=== PATIENT | female | born 1965 | race Two or more races ===

== ENCOUNTER 2018-07-08 10:36 | Outpatient (CLI) | payer OTHER ==
--- NOTE | 2018-07-12 12:54 | Mammography Report ---
Reason: BREAST CA SCREENING Procedure Date: 07/08/2018 Accession Number: [id number] / [id number] Procedure: MGN - Screening Mammo Dig Bilat CPT Code: FULL RESULT: EXAM: Screening Mammo Dig Bilat DATE: 07/08/2018 10:55 AM CLINICAL HISTORY: Routine screening TECHNIQUE: (B) - Bilateral CC and MLO views were obtained. COMPARISON: 04/19/2014 PARENCHYMAL PATTERN: (A) - The breasts demonstrate scattered fibroglandular densities bilaterally. FINDINGS: No significant interval change. There are no suspicious masses, calcifications, or areas of distortion. IMPRESSION: Negative examination. BI-RADS category 1. RECOMMENDATION: (ANNUAL) - Recommend routine annual screening mammography. BI-RADS CATEGORY: (1) - Negative. STANDARD QUALIFYING STATEMENTS: 1. This examination was not reviewed with the aid of Computer-Aided Detection (CAD). 2. A negative or benign imaging report should not preclude biopsy if clinically suspicious findings are present. 3. Dense breasts may obscure an underlying neoplasm. 4. This examination was reviewed without the aid of 3D breast imaging (tomosynthesis).
== END 2018-07-08 10:37 | disposition home or self-care (01) ==
LOC: DI.N 10:36
PROVIDERS: ATTEND Physician Assistant Medical
DX: Z12.31 Encounter for screening mammogram for malignant neoplasm of breast (principal)
CPT/HCPCS: 77067

== ENCOUNTER 2018-08-24 07:04 | Day surgery (SDC) | payer OTHER ==
[2018-08-24] MEDS ORDERED: LACTATED RINGERS 1,000 ML IV ONE ×2 (07:18→09:30)
[2018-08-24 07:43] LABS: HCG UR QUAL NEGATIVE
[2018-08-24] MEDS ORDERED: MIDAZOLAM 2 MG/2 ML VIAL IVP ONE (09:07)
[2018-08-24] MEDS ORDERED: fentaNYL 250 MCG/5 ML VIAL IVP ONE (09:07)
[2018-08-24 10:04] VITALS: BP 101/65
== END 2018-08-24 07:05 | disposition home or self-care (01) ==
LOC: SDS 07:04
PROVIDERS: ATTEND Surgery
PROC: 0DJD8ZZ Inspection of Lower Intestinal Tract, Via Natural or Artificial Opening Endoscopic (ICD-10-PCS; principal; 2018-08-24 08:15)
DX: Z12.11 Encounter for screening for malignant neoplasm of colon (principal); K64.8 Other hemorrhoids
CPT/HCPCS: 45378; 81025; J3010; J7120

== ENCOUNTER 2018-12-08 08:00 | Outpatient (CLI) | payer OTHER ==
[2018-12-08 20:35] LABS: CANDIDA GROUP DNA POSITIVE (NEGATIVE); CANDIDA KRUSEI DNA NEGATIVE (NEGATIVE); TRICHOMONAS VAGINALIS DNA NEGATIVE (NEGATIVE)
[2018-12-08 21:19] LABS: TRICHOMONAS VAGINALIS DNA NEGATIVE (NEGATIVE)
== END 2018-12-08 23:59 | disposition home or self-care (01) ==
LOC: LAB.R 08:00
PROVIDERS: ATTEND Obstetrics & Gynecology
DX: R10.2 Pelvic and perineal pain (principal)
CPT/HCPCS: 87491; 87591; 87661; 87801

== ENCOUNTER 2018-12-14 19:28 | Outpatient (CLI) | payer OTHER ==
--- NOTE | 2018-12-14 21:38 | Ultrasound Report ---
Reason: PELVIC PAIN Procedure Date: 12/14/2018 Accession Number: [id number] / [id number] Procedure: US - Pelvic w/Transvaginal CPT Code: FULL RESULT: EXAM: PELVIC ULTRASOUND EXAM DATE: 12/14/2018 08:20 PM. CLINICAL HISTORY: PELVIC PAIN. COMPARISON: None. TECHNIQUE: Realtime transabdominal pelvic scan performed to identify the uterus and adnexa and as an overview of other pelvic structures, followed by transvaginal scan to provide greater detail of the uterus and adnexa, with static image documentation. FINDINGS: Uterus: 8.2 x 4.0 x 5.4 cm, volume 92.3 cc. Anteverted position. Normal overall size and echotexture. Masses: None. Endometrium: 3 mm. Tiny amount of fluid within the endometrial canal Cervix: Unremarkable. Right Ovary: 1.7 x 1.5 x 2.2 cm, volume 3 cc. Not seen well.. Left Ovary: 2.5 x 1.4 x 2.3 cm, volume 4.1 cc. 1.2 x 1.5 x 1.1 cm simple appearing cyst or follicle. Ovaries are only seen transabdominally. Free Fluid: None. Other: None. IMPRESSION: 1. The ovaries are not well seen, but they appear grossly normal. No adnexal masses. 2. Tiny amount of fluid within the endometrial canal near the fundus, otherwise uterus is normal. RADIA
== END 2018-12-14 19:29 | disposition home or self-care (01) ==
LOC: DI 19:28
PROVIDERS: ATTEND Obstetrics & Gynecology
DX: R10.2 Pelvic and perineal pain (principal)
CPT/HCPCS: 76830; 76856

== ENCOUNTER 2019-10-18 08:00 | Outpatient (CLI) | payer BC, OTHER ==
[2019-10-18 18:44] LABS: CANDIDA GROUP DNA POSITIVE (NEGATIVE); CANDIDA KRUSEI DNA NEGATIVE (NEGATIVE); TRICHOMONAS VAGINALIS DNA NEGATIVE (NEGATIVE)
== END 2019-10-18 23:59 | disposition home or self-care (01) ==
LOC: LAB.R 08:00
PROVIDERS: ATTEND Obstetrics & Gynecology
DX: B37.2 Candidiasis of skin and nail (principal)
CPT/HCPCS: 87661; 87801

== ENCOUNTER 2019-10-27 08:02 | Outpatient (CLI) | payer BC ==
[2019-10-27 12:43] LABS: HEMOGLOBIN A1c% 5.2 % (4.27-6.07)
== END 2019-10-27 08:03 | disposition home or self-care (01) ==
LOC: LAB 08:02
PROVIDERS: ATTEND Obstetrics & Gynecology
DX: Z13.1 Encounter for screening for diabetes mellitus (principal)
CPT/HCPCS: 36415; 82951; 83036

== ENCOUNTER 2020-06-25 10:56 | Outpatient (CLI) | payer BC ==
--- NOTE | 2020-06-27 08:32 | Mammography Report ---
BILATERAL DIGITAL SCREENING MAMMOGRAM 3D/2D: 06/25/2020 CLINICAL: Routine screening. Comparison is made to exams dated: 07/08/2018 mammogram and 04/19/2014 mammogram - [facility]. There are scattered fibroglandular elements in both breasts. No significant masses, calcifications, or other findings are seen in either breast. There has been no significant interval change. IMPRESSION: NEGATIVE There is no mammographic evidence of malignancy. A 1 year screening mammogram is recommended. This exam was interpreted at Station ID: [id number]. NOTE: For mammograms, a report in lay terms will be sent to the patient. Approximately 15% of breast malignancies will not be visualized mammographically. In the management of a palpable breast mass, a negative mammogram must not discourage biopsy of a clinically suspicious lesion. Electronically Signed By: Anurag Mirza M.D. ar/penrad:06/25/2020 13:12:56 ACR BI-RADS Category 1: Negative 3341F PARENCHYMAL PATTERN: (A) - The breast(s) demonstrate(s) scattered fibroglandular densities. BI-RADS CATEGORY: (1) - 1 RECOMMENDATION: (ANNUAL) - Recommend routine annual screening mammography. [id number] 1 year screening LATERALITY: (B)
== END 2020-06-25 10:57 | disposition home or self-care (01) ==
LOC: DI.N 10:56
PROVIDERS: ATTEND Physician Assistant Medical
DX: Z12.31 Encounter for screening mammogram for malignant neoplasm of breast (principal)

== ENCOUNTER 2021-12-04 17:54 | Outpatient (CLI) | payer BC ==
--- NOTE | 2021-12-05 12:16 | XRAY Report ---
PROCEDURE: Foot 3 View LT INDICATIONS: PAIN IN LEFT TOE TECHNIQUE: 3 views of the foot were acquired. COMPARISON: None FINDINGS: Bones: No fractures or dislocations. No suspicious bony lesions. Soft tissues: No tibiotalar joint effusion. Achilles tendon appears normal. IMPRESSION: No visualized acute fracture or dislocation. However, occult injury cannot be excluded. Recommend bubba rt interval imaging follow-up in 7-10 days as clinically indicated for additional evaluation. Reviewed by: Elizabeth Ramos MD on 12/05/2021 12:15 PM PDT Approved by: Elizabeth Ramos MD on 12/05/2021 12:15 PM PDT Station ID: [id number]
== END 2021-12-04 17:55 | disposition home or self-care (01) ==
LOC: DI 17:54
PROVIDERS: ATTEND Registered Nurse
DX: M79.675 Pain in left toe(s) (principal)

== ENCOUNTER 2022-01-28 08:00 | Outpatient (CLI) | payer BC | END 2022-01-28 23:59 | disposition home or self-care (01) | LOC: LAB.N 08:00 | PROVIDERS: ATTEND Family Medicine | DX: M54.50 Low back pain, unspecified (principal) | CPT/HCPCS: 87077; 87086; 87181 ==

== ENCOUNTER 2022-03-04 17:29 | Emergency (ER) | payer BC ==
[2022-03-04 18:12] LABS: BASOPHILS % (AUTO) 0.5 %; EOSINOPHILS # (AUTO) 0.1 10^3/uL (0.0-0.7); EOSINOPHILS % (AUTO) 1.6 %; HCT - HEMATOCRIT 40.3 % (37.0-47.0); HGB - HEMOGLOBIN 13.5 g/dL (12.0-16.0); LYMPHOCYTES # (AUTO) 2.2 10^3/uL (1.5-3.5); LYMPHOCYTES % (AUTO) 29.3 %; MEAN CORPUSCULAR HEMOGLOBIN 31.5 pg (27.0-31.0); MEAN CORPUSCULAR HGB CONC 33.5 g/dL (32.0-36.0); MEAN CORPUSCULAR VOLUME 94.2 fL (81.0-99.0); MEAN PLATELET VOLUME 9.4 fL (7.9-10.8); MONOCYTES # (AUTO) 0.5 10^3/uL (0.0-1.0); MONOCYTES % (AUTO) 7.2 %; NEUTROPHILS # (AUTO) 4.6 10^3/uL (1.5-6.6); NEUTROPHILS % (AUTO) 61.1 %; PLT - PLATELET COUNT 352 10^3/uL (130-450); RED BLOOD COUNT 4.28 10^6/uL (4.20-5.40); RED CELL DISTRIBUTION WIDTH 12.1 % (12.0-15.0); WHITE BLOOD COUNT 7.5 x10^3/uL (4.8-10.8)
--- NOTE | 2022-03-04 18:13 | XRAY Report ---
PROCEDURE: Chest 1 View X-Ray INDICATIONS: Chest pain TECHNIQUE: One view of the chest was acquired. COMPARISON: None. FINDINGS: Surgical changes and devices: None. Lungs and pleura: No pleural effusions or pneumothorax. Lungs are clear. Mediastinum: Mediastinal contours appear normal. Heart size is normal. Bones and chest wall: No suspicious bony lesions. Overlying soft tissues appear unremarkable. IMPRESSION: No acute pulmonary process. Reviewed by: Elizabeth Ramos MD on 03/04/2022 6:12 PM [facility] Approved by: Elizabeth Ramos MD on 03/04/2022 6:12 PM [facility] Station ID: [id number]
[2022-03-04 18:22] LABS: ALBUMIN 4.5 g/dL (3.2-5.5); ALBUMIN/GLOBULIN RATIO 1.4 (1.0-2.2); BILIRUBIN,TOTAL 0.8 mg/dL (0.2-1.0); CALCIUM 9.3 mg/dL (8.5-10.3); CREATININE 0.5 mg/dL (0.4-1.0); POTASSIUM 3.7 mmol/L (3.5-5.0); TOTAL PROTEIN 7.8 g/dL (6.7-8.2)
--- NOTE | 2022-03-04 19:48 | ED Physician Documentation ---
History of Present Illness - Stated complaint Stated Complaint: HBP, DIZZY - Chief complaint Chief Complaint: Cardiac - History obtained from History obtained from: Patient, Family () - Additonal information Additional information: 46-year-old woman, previously healthy, former smoker, presents with intermittent headaches, tenderness, sensation of heart racing since an MD appointment in January at which she was told that she has increased blood pressure. 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 She was sent to walk-in clinic and then subsequently transferred to the emergency department.Denies chest pain, nausea, focal neurological deficit. Review of Systems Constitutional: denies: Fever Cardiac: reports: Palpitations. denies: Chest pain / pressure Respiratory: reports: Dyspnea. 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 HEENT: Other - Present Medications Home Medications: Ambulatory Orders Medication Instructions Recorded Confirmed Amlodipine Besylate [Norvasc] 2.5 mg PO QDAC #30 tablet 03/04/22 - Allergies Allergies/Adverse Reactions: Allergies Allergy/AdvReac Type Severity Reaction Status Date / Time No Known Drug Allergies Allergy Verified 08/24/18 08:18 - Social History Does the pt smoke?: No Smoking Status: Never smoker Does the pt drink ETOH?: Yes Does the pt have substance abuse?: No - Immunizations Immunizations are current?: Yes PD ED PE NORMAL - Vitals Vital signs reviewed: Yes - General General: Alert and oriented X 3, No acute distress, Well developed/nourished - HEENT HEENT: Atraumatic, PERRL, EOMI - Neck Neck: Supple, no meningeal sign - Cardiac Cardiac: RRR - Respiratory Respiratory: No respiratory distress, Clear bilaterally - Derm Derm: Normal color, Warm and dry - Neuro Neuro: Alert and oriented X 3, No motor deficit, No sensory deficit - Psych Psych: Normal mood, Normal affect Results - Vitals Vitals: Vital Signs - 24 hr 03/04/22 03/04/22 17:38 19:36 Temperature 36.8 C Heart Rate 69 70 Respiratory 16 20 Rate Blood Pressure 148/93 H 136/93 H O2 Saturation 96 100 Oxygen O2 Source Room air - Labs Labs: Laboratory Tests 03/04/22 03/04/22 03/04/22 18:05 18:05 18:05 WBC 7.5 RBC 4.28 Hgb 13.5 Hct 40.3 MCV 94.2 MCH 31.5 H MCHC 33.5 RDW 12.1 Plt Count 352 MPV 9.4 Neut # (Auto) 4.6 Lymph # (Auto) 2.2 Hemphill # (Auto) 0.5 Eos # (Auto) 0.1 Baso # (Auto) 0.0 Absolute Nucleated RBC 0.00 Nucleated RBC % 0.0 Sodium 139 Potassium 3.7 Chloride 102 Carbon Dioxide 27 Anion Gap 10.0 BUN 15 Creatinine 0.5 Estimated GFR (MDRD) 129 Glucose 91 Calcium 9.3 Total Bilirubin 0.8 AST 23 ALT 16 Alkaline Phosphatase 81 Troponin I High Sens < 2.3 L Total Protein 7.8 Albumin 4.5 Globulin 3.3 Albumin/Globulin Ratio 1.4 Lipase 35 PD Medical Decision Making - ED course ED course: 56-year-old woman presents with mild hypertension and other symptoms that have resolved in the emergency department. Her work-up included CBC, chemistry, and troponin uncovered no signs of end organ damage. EKG ordered and shown to be in normal sinus rhythm with normal intervals. Chest x-ray was ordered and independently interpreted by outside radiologist as well as myself to show no evidence of acute cardiopulmonary disease. Plan is for the patient to follow-up with primary care provider we will start low-dose amlodipine. Return precautions given. Departure - Departure Disposition: 01 Home, Self Care Clinical Impression: Hypertension, Tinnitus, Palpitations, Shortness of breath Condition: Good Instructions: Hypertension Control Follow-Up: Gema Godoy PA [Provider Admit Priv/Credential] - Prescriptions: Amlodipine Besylate [Norvasc] 2.5 mg PO QDAC #30 tablet Comments: You are seen in the emergency department for high blood pressure and multiple other symptoms. Please follow-up with your primary care provider (referral enclosed). A electronic prescription was sent to [facility] in [place] for blood pressure medication. Return to the emergency department for new or worsening symptoms or other concerns.
[2022-03-04 20:09] VITALS: BP 114/71
== END 2022-03-04 20:08 | disposition home or self-care (01) ==
LOC: ED 17:29
DX: I10 Essential (primary) hypertension (principal); H93.19 Tinnitus, unspecified ear; R00.2 Palpitations; R06.02 Shortness of breath; Z87.891 Personal history of nicotine dependence
CPT/HCPCS: 36415; 80053; 83690; 84484; 85025; 93005; 99283; 99284

== ENCOUNTER 2022-04-11 14:13 | Outpatient (CLI) | payer BC | END 2022-04-11 23:59 | disposition home or self-care (01) | LOC: LAB.N 14:13 | PROVIDERS: ATTEND Registered Nurse | DX: N39.0 Urinary tract infection, site not specified (principal) | CPT/HCPCS: 87086 ==

== ENCOUNTER 2022-04-23 08:00 | Outpatient (CLI) | payer BC | END 2022-04-23 23:59 | disposition home or self-care (01) | LOC: LAB.WCP 08:00 | PROVIDERS: ATTEND Nurse Practitioner | DX: J02.9 Acute pharyngitis, unspecified (principal) | CPT/HCPCS: 87070 ==

== ENCOUNTER 2022-04-25 10:19 | Outpatient (CLI) | payer BC ==
[2022-04-25 19:18] LABS: BASOPHILS # (AUTO) 0.1 10^3/uL (0.0-0.1); EOSINOPHILS # (AUTO) 0.1 10^3/uL (0.0-0.7); EOSINOPHILS % (AUTO) 2.2 %; HCT - HEMATOCRIT 39.6 % (37.0-47.0); LYMPHOCYTES # (AUTO) 1.8 10^3/uL (1.5-3.5); LYMPHOCYTES % (AUTO) 36.1 %; MEAN CORPUSCULAR HEMOGLOBIN 31.4 pg (27.0-31.0); MEAN CORPUSCULAR HGB CONC 32.8 g/dL (32.0-36.0); MEAN CORPUSCULAR VOLUME 95.7 fL (81.0-99.0); MEAN PLATELET VOLUME 10.4 fL (7.9-10.8); MONOCYTES # (AUTO) 0.6 10^3/uL (0.0-1.0); MONOCYTES % (AUTO) 11.9 %; NEUTROPHILS # (AUTO) 2.4 10^3/uL (1.5-6.6); NEUTROPHILS % (AUTO) 48.8 %; PLT - PLATELET COUNT 356 10^3/uL (130-450); RED BLOOD COUNT 4.14 10^6/uL (4.20-5.40); RED CELL DISTRIBUTION WIDTH 12.1 % (12.0-15.0)
[2022-04-25 19:47] LABS: ALBUMIN 4.2 g/dL (3.2-5.5); ALBUMIN/GLOBULIN RATIO 1.4 (1.0-2.2); ALKALINE PHOSPHATASE 67 IU/L (42-121); ALT ALANINE AMINOTRANSFERASE 16 IU/L (10-60); AST ASPARTATE AMINOTRANSFERASE 25 IU/L (10-42); BILIRUBIN,TOTAL 0.7 mg/dL (0.2-1.0); BUN - BLOOD UREA NITROGEN 15 mg/dL (6-20); CALCIUM 9.4 mg/dL (8.5-10.3); CARBON DIOXIDE - CO2 27 mmol/L (21-32); CHLORIDE 105 mmol/L (101-111); CHOL/HDL RATIO 3.7 (<4.4); CHOLESTEROL 212 mg/dL; CREATININE 0.6 mg/dL (0.4-1.0); GFR - MDRD 104 (>89); GLUCOSE 87 mg/dL (70-100); HDL CHOLESTEROL 58 mg/dL; LDL CHOLESTEROL,CALCULATED 145 mg/dL; LDL/HDL RATIO 2.5 (<4.4); POTASSIUM 4.1 mmol/L (3.5-5.0); SODIUM 139 mmol/L (135-145); TOTAL PROTEIN 7.3 g/dL (6.7-8.2); TRIGLYCERIDES 43 mg/dL; VLDL CHOLESTEROL 9 mg/dL
[2022-04-25 19:49] LABS: THYROID STIMULATING HORMONE 1.98 uIU/mL (0.34-5.60)
== END 2022-04-25 10:20 | disposition home or self-care (01) ==
LOC: LAB.N 10:19
PROVIDERS: ATTEND Nurse Practitioner
DX: I10 Essential (primary) hypertension (principal); Z13.220 Encounter for screening for lipoid disorders; R53.83 Other fatigue
CPT/HCPCS: 36415; 80053; 80061; 83721; 84443; 85025

== ENCOUNTER 2022-08-06 08:00 | Outpatient (CLI) | payer BC ==
[2022-08-06 19:57] LABS: BACTERIAL VAGINOSIS DNA NEGATIVE (NEGATIVE); CANDIDA GLABRATA DNA NEGATIVE (NEGATIVE); CANDIDA GROUP DNA POSITIVE (NEGATIVE); CANDIDA KRUSEI DNA NEGATIVE (NEGATIVE); TRICHOMONAS VAGINALIS DNA NEGATIVE (NEGATIVE)
== END 2022-08-06 23:59 | disposition home or self-care (01) ==
LOC: LAB.N 08:00
PROVIDERS: ATTEND Specialist
DX: N76.0 Acute vaginitis (principal)
CPT/HCPCS: 81514

== ENCOUNTER 2022-12-11 08:00 | Outpatient (CLI) | payer BC ==
--- NOTE | 2022-12-11 10:28 | Mammography Report ---
BILATERAL DIGITAL SCREENING MAMMOGRAM 3D/2D: 12/11/2022 CLINICAL: Routine screening. Comparison is made to exams dated: 08/28/2021 mammogram, 06/25/2020 mammogram, 07/08/2018 mammogram, an d 04/19/2014 mammogram - [facility]. There are scattered areas of fibroglandular density in both breasts (category b / 25%-50% glandular t issue). No significant masses, calcifications, or other findings are seen in either breast. There has been no significant interval change. IMPRESSION: NEGATIVE There is no mammographic evidence of malignancy. A 1 year screening mammogram is recommended. Based on the Tyrer Cuzick model (a risk assessment model) the patients lifetime risk is 7.7% and her 10 year risk is 2.3%. According to the ACR, ACS, and NCCN guidelines, an annual breast MRI exam mendez g with mammogram is recommended if the patients lifetime risk is 20% or greater. This exam was interpreted at Station ID: [id number]. NOTE: For mammograms, a report in lay terms will be sent to the patient. Approximately 15% of breast malignancies will not be visualized mammographically. In the management of a palpable breast mass, a negative mammogram must not discourage biopsy of a clinically suspicious lesion. Electronically Signed By: Sean alberto/daja:12/11/2022 10:04:53 letter sent: No_Letter ACR BI-RADS Category 1: Negative 3341F PARENCHYMAL PATTERN: (A) - The breast(s) demonstrate(s) scattered fibroglandular densities. BI-RADS CATEGORY: (1) - 1 Mammogram [id number] 1 year screening LATERALITY: (B)
== END 2022-12-11 08:01 | disposition home or self-care (01) ==
LOC: DI 08:00
PROVIDERS: ATTEND Obstetrics & Gynecology
DX: Z12.31 Encounter for screening mammogram for malignant neoplasm of breast (principal); R92.323 Mammographic fibroglandular density, bilateral breasts

== ENCOUNTER 2023-06-16 09:00 | Outpatient (CLI) | payer BC ==
[2023-06-16 22:44] LABS: BACTERIAL VAGINOSIS DNA NEGATIVE (NEGATIVE); CANDIDA GLABRATA DNA NEGATIVE (NEGATIVE); CANDIDA GROUP DNA POSITIVE (NEGATIVE); CANDIDA KRUSEI DNA NEGATIVE (NEGATIVE); TRICHOMONAS VAGINALIS DNA NEGATIVE (NEGATIVE)
== END 2023-06-16 09:15 | disposition home or self-care (01) ==
LOC: LAB.N 09:00
PROVIDERS: ATTEND Family Medicine
DX: N76.0 Acute vaginitis (principal); R35.0 Frequency of micturition
CPT/HCPCS: 81514; 87086

== ENCOUNTER 2023-08-06 08:34 | Day surgery (SDC) | payer BC ==
[~2023-08-06 08:34] MED LIST: LIDOCAINE-MPF 2% 5 ML VIAL ONE; PROPOFOL 200 MG/20 ML VIAL IVP ONE; PROPOFOL 500 MG/50 ML 500 MG/50 ML VIAL ONE
--- NOTE | 2023-08-06 09:03 | ANESTHESIA ---
Pre-Anesthesia VS, & Labs - Diagnosis Cancer screening - Procedure colonoscopy Vital Signs: Temp Pulse Resp BP Pulse Ox O2 Flow Rate 36.8 C 88 17 119/90 H 98 08/06/23 08:41 08/06/23 08:41 08/06/23 08:41 08/06/23 08:41 08/06/23 08:41 Height: 5 ft 2 in Weight (kg): 68 kg Body Mass Index: 27.3 BMI Classification: Overweight - NPO >8 hours - Is Patient ?: No Home Medications and Allergies Norvasc Allergies/Adverse Reactions: Allergies Allergy/AdvReac Type Severity Reaction Status Date / Time red dye AdvReac Unknown Verified 08/06/23 08:54 saffron AdvReac Unknown Verified 08/06/23 08:54 Anes History & Medical History - Anesthetic History Anesthesia Complications: reports: Post-Operative Nausea/Vomiting - Medical History Cardiovascular: reports: Hypertension, High cholesterol Pulmonary: reports: None Gastrointestinal: reports: None Urinary: reports: None Neuro: reports: None Musculoskeletal: reports: Rheumatoid arthritis Endocrine/Autoimmune: reports: None Skin: reports: None Smoking Status: Former smoker (quit 10 years ago) Psychosocial: reports: No issues indicated History of Cancer?: No - Surgical History Eyes Ears Nose Throat (EENT): reports: Cataracts, Other Gynecologic: reports: section Exam General: Alert, Oriented x3, Cooperative, No acute distress Dental: WNL Mouth Openin Fingerbreadth Neck Mobility: Normal Mallampati classification: II Thyromental Distance: 4-6 cm Mental/Cognitive Status: Alert/Oriented X3, Normal for patient Plan Anesthesia Type: General, Total IV Consent for Procedure(s) Verified and Reviewed: Yes Code Status: Attempt Resuscitation ASA classification: 2-Mild systemic disease Is this case an emergency?: No
[2023-08-06] MEDS: LACTATED RINGERS 1,000 ML IV ONE (09:04)
--- NOTE | 2023-08-06 09:13 | HISTORY & PHYSICAL EXAMINATION ---
Chief Complaint - Chief Complaint Chief Complaint: here for colonoscopy History of Present Illness - History Obtained From Records Reviewed: yes History obtained from: pt Exam Limitations: none - History of Present Illness HPI Comment/Other: normal colonoscopy 5 years ago. her mother had cancer in her 70's. she is uncertain if it were colon cancer or anal cancer. her primary care provider has recommended another colonoscopy. no gi sx. History - Past Medical History Cardiovascular: reports: Hypertension, High cholesterol Respiratory: reports: None Neuro: reports: None Endocrine/Autoimmune: reports: None GI: reports: None : reports: None HEENT: reports: Other Psych: reports: None Musculoskeletal: reports: Rheumatoid arthritis Derm: reports: None MRSA Hx?: No - Past Surgical History /[employer]: reports: section HEENT: reports: Cataracts, Other Meds/Allgy - Home Medications Home Medications: Ambulatory Orders Medication Instructions Recorded Confirmed Amlodipine Besylate [Norvasc] 2.5 mg PO QDAC #30 tablet 03/04/22 08/06/23 - Allergies Allergies/Adverse Reactions: Allergies Allergy/AdvReac Type Severity Reaction Status Date / Time red dye AdvReac Unknown Verified 08/06/23 08:54 saffron AdvReac Unknown Verified 08/06/23 08:54 Review of Systems - Other Findings Other Findings: 10 pt ros as above otherwise unremarkable Exam - Vital Signs Vital Signs: Vital Signs x48h Temp Pulse Resp BP Pulse Ox 08/06/23 08:41 36.8 C 88 17 119/90 H 98 - Physical Exam General Appearance: positive: No acute distress, Alert Eyes Bilateral: positive: PERRL, EOMI ENT: positive: No signs of dehydration Neck: positive: No JVD, Trachea midline Respiratory: positive: No respiratory distress Cardiovascular: positive: Regular rate & rhythm Abdomen: positive: Non-tender, No distention Neurologic/Psychiatric: positive: Oriented x3 Conclusion/Plan - Problem List (1) Colon cancer screening Conclusion/Plan: her mother had cancer, likely colon cancer. plan colonoscopy. parq held and consent obtained
[2023-08-06] MEDS: LACTATED RINGERS 500 ML IV ONE (09:49)
[2023-08-06 10:11] VITALS: BP 107/67; O2SAT 99
--- NOTE | 2023-08-06 12:16 | ANESTHESIA POST OP EVALUATION ---
Anesthesia Post Eval - Post Anesthesia Eval Vitals: Last Vital Signs Temp 36.2 C L 08/06/23 09:49 Pulse 80 08/06/23 10:04 Resp 18 08/06/23 10:04 BP 107/67 08/06/23 10:04 Pulse Ox 99 08/06/23 10:04 O2 Flow Rate CV Function Including HR & BP: Stable Pain Control: Satisfactory Nausea & Vomiting: Negative Mental Status: Baseline Respiratory Status: Airway Patent Hydration Status: Satisfactory Anesthesia Complications: None
== END 2023-08-06 08:35 | disposition home or self-care (01) ==
LOC: SDS 08:34
PROVIDERS: ATTEND Surgery
DX: Z12.11 Encounter for screening for malignant neoplasm of colon (principal); I10 Essential (primary) hypertension; Z87.891 Personal history of nicotine dependence; Z80.0 Family history of malignant neoplasm of digestive organs
CPT/HCPCS: 45378; J7120

== ENCOUNTER 2023-08-09 08:00 | Outpatient (CLI) | payer BC | END 2023-08-09 23:59 | disposition home or self-care (01) | LOC: LAB.N 08:00 | PROVIDERS: ATTEND Nurse Practitioner | DX: N39.0 Urinary tract infection, site not specified (principal) | CPT/HCPCS: 87086 ==

== ENCOUNTER 2023-10-14 08:00 | Outpatient (CLI) | payer BC ==
[2023-10-14 21:01] LABS: BACTERIAL VAGINOSIS DNA NEGATIVE (NEGATIVE); CANDIDA GLABRATA DNA NEGATIVE (NEGATIVE); CANDIDA GROUP DNA NEGATIVE (NEGATIVE); CANDIDA KRUSEI DNA NEGATIVE (NEGATIVE); TRICHOMONAS VAGINALIS DNA NEGATIVE (NEGATIVE)
== END 2023-10-14 23:59 | disposition home or self-care (01) ==
LOC: LAB 08:00
PROVIDERS: ATTEND Physician Assistant
DX: N76.0 Acute vaginitis (principal)
CPT/HCPCS: 81514